=== PATIENT | female | born 1965 | race Caucasian/White ===

== ENCOUNTER 2018-04-26 20:47 | Emergency (ER) | payer BC ==
[2018-04-26 23:55] LABS: ABS Basophils 0 10^3/ul (0-0.2); ABS Eosinophils 0.1 10^3/ul (0-0.6); ABS Monocytes 0.5 10^3/ul (0-0.8); ABS Neutrophils 2.3 10^3/ul (1.5-7.7); ABS Nucleated RBC 0 10^3/ul; Eosinophil % 1.4 %; Hematocrit 38 % (35-47); Hemoglobin 12.6 g/dl (12.0-16.0); Lymphocyte % 41.1 %; Mean Corpuscular HGB Conc 33 g/dl (31-36); Mean Corpuscular Hemoglobin 29 pg (27-31); Mean Corpuscular Volume 87 fL (80-97); Mean Platelet Volume 7.8 fL (7.4-10.4); Nucleated Red Blood Cells % 0.1; Platelet Count 224 10^3/ul (150-450); Red Blood Count 4.41 10^6/ul (4.00-5.40); Red Cell Distribution Width 14 % (10.5-15); White Blood Count 4.9 10^3/ul (3.5-10.8)
[2018-04-27 00:07] LABS: EGFR Non-African American 97.8 (>60)
--- NOTE | 2018-04-27 02:52 | ED ---
HPI Chest Pain - HPI Summary HPI Summary: Patient complains of sternal chest pain starting yesterday with associated nausea and, lightheadedness, diaphoresis. CP described as pressure, intermittent, no radiation, worst 09/07. Patient states history of CP with anxiety, but denies current anxiety. Does admit to increased caffeine intake over the holidays. Denies fever, cough, sore throat, SOB, V/D, abdominal pain, change in urine, change in BM. Also denies history of blood clots, estrogen supplements, OCPs, , recent surgery or trauma, history of immobility or long travel. Medical history is none. Nonsmoker. Stress test 08/15/69 negative. - History of Current Complaint Chief Complaint: EDChestPainROMI Time Seen by Provider: 04/26/18 23:26 Hx Obtained From: Patient Onset/Duration: Started Hours Ago Timing: Intermittent Initial Severity: Mild Current Severity: Mild Pain Intensity: 3 Pain Scale Used: 0-10 Numeric Chest Pain Location: Discrete at:, Left Anterior Chest Pain Radiates: No Character: Pressure/Squeezing Aggravating Factor(s): Nothing Alleviating Factor(s): Nothing Associated Signs and Symptoms: Positive: Chest Pain - Allergy/Home Medications Allergies/Adverse Reactions: Allergies Allergy/AdvReac Type Severity Reaction Status Date / Time No Known Allergies Allergy Verified 08/05/16 08:33 PMH/Surg Hx/FS Hx/Imm Hx Endocrine/Hematology History: Denies: Hx Anticoagulant Therapy, Hx Diabetes Cardiovascular History: Reports: Hx Angina Denies: Hx Coronary Artery Disease, Hx Hypercholesterolemia, Hx Hypertension , Hx Myocardial Infarction, Hx Valvular Heart Disease Respiratory History: Denies: Hx Asthma, Hx Chronic Obstructive Pulmonary Disease (COPD) - Cancer History Hx Chemotherapy: No Hx Radiation Therapy: No Infectious Disease History: No Infectious Disease History: Denies: Traveled Outside the [place] in Last 30 Days - Social History Alcohol Use: Occasionally Substance Use Type: Reports: None Smoking Status (MU): Never Smoked Tobacco Review of Systems Constitutional: Negative Eyes: Negative ENT: Negative Positive: Chest Pain Respiratory: Negative Gastrointestinal: Negative Genitourinary: Negative Musculoskeletal: Negative Skin: Negative Neurological: Negative Psychological: Normal All Other Systems Reviewed And Are Negative: Yes Physical Exam - Summary Physical Exam Summary: Chest pain not reproducible with palpation of chest, movement of upper extremities or contraction of pectoral muscles. Triage Information Reviewed: Yes Vital Signs On Initial Exam: Initial Vitals Temp Pulse Resp BP Pulse Ox 97.1 F 64 16 120/71 99 04/26/18 20:49 04/26/18 20:49 04/26/18 20:49 04/26/18 20:49 04/26/18 20:49 Vital Signs Reviewed: Yes Appearance: Positive: Well-Appearing Skin: Positive: Warm Head/Face: Positive: Normal Head/Face Inspection Eyes: Positive: Normal Neck: Positive: Supple Respiratory/Lung Sounds: Positive: Clear to Auscultation Cardiovascular: Positive: Normal Abdomen Description: Positive: Nontender Musculoskeletal: Positive: Normal Neurological: Positive: Normal Psychiatric: Positive: Normal AVPU Assessment: Alert - [place] Coma Scale Best Eye Response: 4 - Spontaneous Best Motor Response: 6 - Obeys Commands Best Verbal Response: 5 - Oriented Coma Scale Total: 15 Diagnostics - Vital Signs Vital Signs Temp Pulse Resp BP Pulse Ox 04/27/18 01:30 61 18 105/65 97 04/27/18 01:00 60 15 103/61 98 04/27/18 00:30 55 18 116/77 100 04/27/18 00:04 59 23 100 04/27/18 00:01 62 12 121/75 99 04/27/18 00:00 60 17 98 04/26/18 23:30 57 24 129/78 98 04/26/18 20:49 97.1 F 64 16 120/71 99 - Laboratory Lab Results: Lab Results 04/26/18 04/26/18 Range/Units 23:40 23:40 WBC 4.9 (3.5-10.8) 10^3/ul RBC 4.41 (4.00-5.40) 10^6/ul Hgb 12.6 (12.0-16.0) g/dl Hct 38 (35-47) % MCV 87 (80-97) fL MCH 29 (27-31) pg MCHC 33 (31-36) g/dl RDW 14 (10.5-15) % Plt Count 224 (150-450) 10^3/ul MPV 7.8 (7.4-10.4) fL Neut % (Auto) 46.5 % Lymph % (Auto) 41.1 % [place] % (Auto) 10.2 % Eos % (Auto) 1.4 % Baso % (Auto) 0.8 % Absolute Neuts (auto) 2.3 (1.5-7.7) 10^3/ul Absolute Lymphs (auto) 2.0 (1.0-4.8) 10^3/ul Absolute Monos (auto) 0.5 (0-0.8) 10^3/ul Absolute Eos (auto) 0.1 (0-0.6) 10^3/ul Absolute Basos (auto) 0 (0-0.2) 10^3/ul Absolute Nucleated RBC 0 10^3/ul Nucleated RBC % 0.1 Sodium 134 L (135-145) mmol/L Potassium 4.0 (3.5-5.0) mmol/L Chloride 101 (101-111) mmol/L Carbon Dioxide 30 (22-32) mmol/L Anion Gap 3 (2-11) mmol/L BUN 14 (6-24) mg/dL Creatinine 0.64 (0.51-0.95) mg/dL Est GFR ( Amer) 118.4 (>60) Est GFR (Non-Af Amer) 97.8 (>60) BUN/Creatinine Ratio 21.9 H (8-20) Glucose 100 (70-100) mg/dL Calcium 9.1 (8.6-10.3) mg/dL Total Bilirubin 0.30 (0.2-1.0) mg/dL AST 18 (13-39) U/L ALT 17 (7-52) U/L Alkaline Phosphatase 68 (34-104) U/L Troponin I 0.00 (<0.04) ng/mL C-Reactive Protein < 1.00 (<8.01) mg/L Total Protein 6.6 (6.4-8.9) g/dL Albumin 4.0 (3.2-5.2) g/dL Globulin 2.6 (2-4) g/dL Albumin/Globulin Ratio 1.5 (1-3) Lipase 26 (11.0-82.0) U/L TSH 5.79 H (0.34-5.60) mcIU/mL Result Diagrams: 04/26/18 23:40 04/26/18 23:40 Lab Statement: Any lab studies that have been ordered have been reviewed, and results considered in the medical decision making process. Chest Pain Course/Dx - Course Course Of Treatment: Patient complains of sternal chest pain starting yesterday with associated nausea and, lightheadedness, diaphoresis. CP described as pressure, intermittent, no radiation, worst 4/10. Patient states history of CP with anxiety, but denies current anxiety. Does admit to increased caffeine intake over the holidays. Denies fever, cough, sore throat, SOB, V/D, abdominal pain, change in urine, change in BM. Also denies history of blood clots, estrogen supplements, OCPs, , recent surgery or trauma, history of immobility or long travel. Medical history is none. Nonsmoker. Stress test 08/15/69 negative. Physical exam:Chest pain not reproducible with palpation of chest, movement of upper extremities or contraction of pectoral muscles. Vital signs stable and within normal limits. Chest x-ray negative. Labs unremarkable. EKG unremarkable. Signing out to Dr. Laura pending second troponin. - Diagnoses Provider Diagnoses: Chest pain Discharge - Sign-Out/Discharge Documenting (check all that apply): Sign-Out Patient Signing out patient TO: Alejandro Black - Discharge Plan Condition: Good Disposition: HOME Patient Education Materials: Noncardiac Chest Pain (ED) Referrals: Cici Yee NP [Primary Care Provider] - 2 Days - Billing Disposition and Condition Condition: GOOD Disposition: Home
[2018-04-27 03:14] VITALS: BP 114/70
== END 2018-04-27 03:13 | disposition home or self-care (01) ==
LOC: ED 20:47
DX: R07.9 Chest pain, unspecified (principal)
CPT/HCPCS: 36415; 71045; 80053; 83690; 84443; 84484; 85025; 86140; 93005; 99283